=== PATIENT | female | born 2000 | race Caucasian/White ===

== ENCOUNTER 2024-03-25 10:35 | Day surgery (SDC) | payer OTHER ==
[2024-03-25] MEDS ORDERED: Sodium Bicarbonate 2.5 MEQ/5 ML SDV ONE (11:32)
[2024-03-25] MEDS ORDERED: Lidocaine 1% PF 5 ML VIAL ONE (11:32)
[2024-03-25] MEDS ORDERED: FLU (Fluarix Triv) TS24-25(6MOS UP)/PF 45 MCG/0.5 ML Syringe IM ONE (18:00)
== END 2024-03-25 12:30 | disposition home or self-care (01) ==
LOC: ULT 10:35
PROVIDERS: ATTEND Physician Assistant
PROC: 0G9H3ZX Drainage of Right Thyroid Gland Lobe, Percutaneous Approach, Diagnostic (ICD-10-PCS; principal; 2024-03-25)
DX: E04.1 Nontoxic single thyroid nodule (principal); J45.909 Unspecified asthma, uncomplicated; Z90.89 Acquired absence of other organs; Z79.899 Other long term (current) drug therapy
CPT/HCPCS: 10005; 88173; 88305